=== PATIENT | male | born 2000 | race Caucasian/White ===

== ENCOUNTER 2021-08-28 18:20 | Emergency (ER) | payer BC ==
[~2021-08-28] VITALS: Ht 180.3 cm; Wt 59.0 kg
[2021-08-28 18:41] VITALS: BP 112/78
== END 2021-08-28 19:13 | disposition home or self-care (01) ==
LOC: ER 18:20
DX: Z48.00 Encounter for change or removal of nonsurgical wound dressing (principal)
CPT/HCPCS: 99281

== ENCOUNTER 2021-09-04 16:13 | Emergency (ER) | payer BC ==
[~2021-09-04] VITALS: Ht 172.7 cm; Wt 77.0 kg
[2021-09-04] MEDS ORDERED: DOXY-326 PO (20:55)
[2021-09-04 21:01] VITALS: BP 118/74
== END 2021-09-04 21:29 | disposition home or self-care (01) ==
LOC: ER 16:13
DX: T81.30XA Disruption of wound, unspecified, initial encounter (principal); Y93.89 Activity, other specified; Y92.89 Other specified places as the place of occurrence of the external cause; Z88.0 Allergy status to penicillin
CPT/HCPCS: 87070; 87077; 87186; 87205; 99283; Z7610; 99281